=== PATIENT | female | born 1940 | race Caucasian/White ===

== ENCOUNTER 2016-07-24 11:56 | Inpatient (IN) | payer MEDICARE, OTHER ==
[~2016-07-24] VITALS: Ht 168 cm; Wt 68.5 kg
--- NOTE | 2016-07-30 10:44 | NUR ---
0745 AFTER RECEIVING REPORT FROM NIGHTSHIFT RN, I MADE PATIENT ROUNDS AT BEDSIDE AND WALKED [facility] 313 ROOM TO FIND PATIENT EATING MARTHA CRACKERS AND PATIENT REPORTING THAT SHE IS CHOKING ON THE CRACKER CRUMBS. PATIENT O2 SATURATION WAS 86% ON 3 LITERS NC AT THIS TIME. TURNED PATIENT UP TO 4L NC AT THIS TIME AND O2 CAME UP TO 91-92%. PATIENT DYSPNEIC AT THIS TIME. CALLED RT TO BEDSIDE. B/P 146/77. RESPIRATIONS 22. TEMP. 97.1. CALLED MD TINOCO AND REPORTED THE ABOVE TO HIM AT 0748... HE GAVE NEW ORDER FOR CHEST XRAY AT THIS TIME STAT. AFTER RECEIVING CHEST XRAY RESULTS I NOTIFIED DR. TINOCO AT 0920. [address] TINOCO KIDNEY FUNCTION HAS WORSENED TODAY BUN 65, CREATNINE 2.65. K 5.4, BNP GREATER THAN 35,000, PATIENT HAS GAINED 5.8 POUNDS SINCE YESTERDAY ACCORDING TO HER ADMIT WEIGHT. 0938 DR TINOCO GAVE ORDER TO HOLD ALL MEDS AND DO NOT GIVE. ORDER RECEIVED THIS AM TO HOLD MODIFIED BARIUM SWALLOW TEST TODAY. 0810 INCREASED O2 TO 5 LITERS BECAUSE PATIENT WAS 88% ON 4 LITERS NC. RT AT BEDSIDE AND INCREASED O2 TO [address] TINOCO MADE AWARE. REPORTED TO DR. TINOCO DURING MORNING MEETING THIS AM AROUND 1020 THAT PATIENT WAS NOT KEEPING O2 ON AT THIS TIME AND O2 SATURATION WOULD DROP DOWN IN THE 80'S, I HAVE BEEN IN HER ROOM SEVERAL TIMES THIS AM AND PLACED O2 BACK ON PATIENT. PATIENT WILL BE MOVED TO ICU PER DR. TINOCO
--- NOTE | 2016-07-30 13:03 | NUR ---
1135 REPORT GIVEN TO GLADYS BRAY FOR PATIENT TO TRANSFER TO ICU. 1142 PATIENT TRANSFERRED TO ICU AT THIS TIME. PATIENT ON 5L NC. PATIENT AWAKE AND TALKING AT THIS TIME.
== END 2016-07-30 11:30 | disposition short-term general hospital (02) | DRG 291 ==
LOC: SWI 11:56
PROVIDERS: ADMIT Internal Medicine
DX: I13.0 Hypertensive heart and chronic kidney disease with heart failure and stage 1 through stage 4 chronic kidney disease, or unspecified chronic kidney disease (principal); I50.33 Acute on chronic diastolic (congestive) heart failure; I63.9 Cerebral infarction, unspecified; N39.0 Urinary tract infection, site not specified; I47.1 Supraventricular tachycardia; K50.90 Crohn's disease, unspecified, without complications; E11.22 Type 2 diabetes mellitus with diabetic chronic kidney disease; B96.89 Other specified bacterial agents as the cause of diseases classified elsewhere; Z16.12 Extended spectrum beta lactamase (ESBL) resistance; N18.3 Chronic kidney disease, stage 3 (moderate); I73.9 Peripheral vascular disease, unspecified; F03.90 Unspecified dementia, unspecified severity, without behavioral disturbance, psychotic disturbance, mood disturbance, and anxiety; I25.10 Atherosclerotic heart disease of native coronary artery without angina pectoris; Z95.1 Presence of aortocoronary bypass graft; E78.5 Hyperlipidemia, unspecified; K21.9 Gastro-esophageal reflux disease without esophagitis; D69.6 Thrombocytopenia, unspecified; Z87.891 Personal history of nicotine dependence; D53.9 Nutritional anemia, unspecified; I27.2 Other secondary pulmonary hypertension; Z79.82 Long term (current) use of aspirin; Z79.02 Long term (current) use of antithrombotics/antiplatelets; Z79.4 Long term (current) use of insulin; Z79.899 Other long term (current) drug therapy; Z88.5 Allergy status to narcotic agent; Z88.0 Allergy status to penicillin; Z88.2 Allergy status to sulfonamides; Z90.49 Acquired absence of other specified parts of digestive tract
CPT/HCPCS: 92610; 97162-GP; 97166; J1335; J1650

== ENCOUNTER 2016-07-30 11:41 | Inpatient (IN) | payer MEDICARE, OTHER ==
[~2016-07-30] VITALS: Ht 167.6 cm; Wt 65.3 kg
--- NOTE | 2016-07-30 14:09 | NUR ---
1130: REPORT RECEIVED FROM JOSSIE TSAI RN ON RIWI. 1140: PT TRANSPORTED TO ICU VIA STRETCHER. PT ALERT AND ORIENTED X2, VSS, AND NO DISTRESS NOTED AT THIS TIME.
--- NOTE | 2016-07-31 05:28 | NUR ---
0515 SLEPT MOST OF NIGHT AFTER TAKING SEROQUEL. AWAKENED FOR LAB AND PT IRRITABLE AND UNCOOPERATIVE. WORDS MUMBLED AND HARD TO UNDERSTAND. LOOKING AROUND ROOM CONFUSED AT THIS TIME. LIGHT LEFT ON SO PT CAN SEE BETTER ITEMS IN ROOM. 0525 CXR TAKEN PORTABLE WITHOUT PROBLEMS. STILL TALKING WITH MUMBLED SPEECH AND APPEARS TO BE SEEING THINGS ON CEILING. UNABLE TO ANSWER QUESTIONS AT THIS TIME.
--- NOTE | 2016-07-31 21:31 | NUR ---
2124 SEROQUEL 25MG PO GIVEN TO PT IN PUDDING FOR REST AND PT SPIT IT ONTO FLOOR. THREW IN GARBAGE AND NEW MEDICATION GIVEN TO PT. SHE IS HAVE EPISODES LIKE LAST PM. SHE IS CONSTANTLY TALKING AND MUMBLING, REACHING TOWARD DEXTER AND YELLING AT TIMES. 02 SATS DECREASES WITH TALKING AND ACTING OUT. WILL MONITOR FOR COMFORT AND WILL NOTIFY MD IF SHE DOES NOT RELAX SOON.
--- NOTE | 2016-08-01 01:05 | NUR ---
0015 PT CONT TO MOAN AND GROAN LOUDLY IF IN PAIN. DR ALCARAZ NOTIFIED TORADOL IV ORDERED 0025 NOTED PTS HX OF CKD AND ALLERGY TO INSAIDS PER PHARMACY, CALLED AND ORDER CHANGED TO ULTRAM 25MG PO QID FOR PAIN. ULTRAM GIVEN ORDERED. 0100 CONT TO MOAN AND TALK AT INTERVALS LOUDLY IF IN PAIN. REPOSITIONED TO SIDE AND NO CHANGE IN REACTION AT THIS TIME.
--- NOTE | 2016-08-01 10:25 | NUR ---
0950- HERE TO SEE AND ASSESS PT AT THIS TIME. UPDATED ON PT CONDITION AN ABNORMAL LABS THIS AM. PT HAS BEEN FOR CT HEAD WELL MBS. N/O'S NOTED
--- NOTE | 2016-08-01 19:44 | NUR ---
1700-DR. HILTON HERE TO PLACE CENTRAL LINE FOR BLOOD TRANSFUSION. AWAITING BLOOD. POSITIVE FOR ANTIBODIES. TRIPLE LUMEN CENTRAL LINE PLACED IN RIGHT SC. PT TOLERATED WELL
--- NOTE | 2016-08-01 22:27 | NUR ---
2154 PT REMAINS CONFUSED AND YELLING OUT FREQ. HAS FEAR OF FALLING MOST OF THE TIME. DR. TINOCO CALLED TO CHECK ON PT AND SEROQUEL PO INCREASED TO 100MG AND 50MG PO GIVEN TO EQUAL 100MG FOR THIS P.M. DOSE.
--- NOTE | 2016-08-02 18:03 | NUR ---
1430-NOTIFIED MD OF CONTINUING AGITATION AND RESTLESSNESS. YELLS OUT FREQUENTLY. N/O'S NOTED AND HALDOL 2MG IM GIVEN AT THIS TIME
--- NOTE | 2016-08-02 23:11 | NUR ---
EXTRA DOSE OF HALDOL ORDERED AT [address] DIMAS DUE TO PATIENT'S AGITATED STATE. APPROX. 1 HR AFTER, PATIENT STILL YELLING, AGITATED, FAILING HER ARMS AND TENSING HER ENTIRE BODY. DR. DIMAS CAME TO THE ICU TO LOOK AT THE PATIENT AND DETERMINE WHAT THE NEXT STEP SHOULD BE. HE ORDERED GEODON 10 MG IM EVERY 4 HOURS. THIS WAS ADMINISTERED AROUND 2199. FINALLY, AROUND 2239, PATIENT RELAXED AND FELL ASLEEP. STILL MILDLY RESTLESS, BUT IS SLEEPING AND QUIET AT THIS TIME
--- NOTE | 2016-08-03 11:41 | NUR ---
0915- HERE SEE AND ASSESS PT THIS AM. UPDATED ON PT CONDITION AND AGITATION REPORTED LAST HS. NURSE REPORTED IMPROVED UOP LAST HS. PT CONTINUES WITH CONFUSION BUT NOT AGITATED THIS AM. NOTIFIED OF ABNORMAL LAB VALUES. N/O'S NOTED
--- NOTE | 2016-08-03 18:03 | NUR ---
1530-GEODON 10MG IM GIVEN AT THIS TIME FOR INCREASED AGITATION
--- NOTE | 2016-08-03 23:42 | NUR ---
PT HAS BECOME VERY AGITATED AND FEARFUL, YELLING AND TENSING UP, HAVING VISUAL AND AUDITORY HALLUCINATIONS. ATTEMPTS AT REDIRECTION WERE UNSUCCESSFUL AND PATIENT WAS GETTING WORSE. ROLANDO DOWD (PRN) GIVEN AROUND 0. AFTER SITTING AT BEDSIDE AND HOLDING HER HAND AND PLAYING SOME SOOTHING MUSIC, AT AROUND 2250, PATIENT HAD FALLEN ASLEEP AND APPEARS RELAXED AND COMFORTABLE.
--- NOTE | 2016-08-04 11:17 | NUR ---
0955- OXYGEN SATURATION READING LOW 80'S. PHYSICAL THERAPY AT BEDSIDE WORKING WITH PATIENT. DIVA FROM PHYSICAL THERAPY STATED THAT THE PATIENT HAD THE OXYGEN OFF WHEN THEY FIRST CAME IN THE ROOM. PATIENT ASSESSMENT UNCHANGED. NO COLOR CHANGE NOTED. PATIENT DID NOT CHANGE THEIR WORK OF BREATHING. RESPIRATIONS 22 BREATHS PER MINUTE. LUNG SOUNDS DIMINISHED AND CLEAR. DR TINOCO IN UNIT. PATIENT HFNC INCREASED TO 10L. NO CHANGE IN SPO2 READING. RESPIRATORY CALLED FOR ASSISTANCE. 1010- RT CHANGED PATIENT OVER TO VENTURI MASK AT 55%. ABG AND CXR ORDERED. PATIENT OXYGEN SATURATION SLOWLY INCREASING.
== END 2016-08-04 14:00 | disposition short-term general hospital (02) | DRG 291 ==
LOC: ICU 11:41
PROVIDERS: ADMIT Internal Medicine
PROC: 30233N1 Transfusion of Nonautologous Red Blood Cells into Peripheral Vein, Percutaneous Approach (ICD-10-PCS; principal; 2016-08-01)
PROC: 30233N1 Transfusion of Nonautologous Red Blood Cells into Peripheral Vein, Percutaneous Approach (ICD-10-PCS; 2016-08-02)
DX: I13.0 Hypertensive heart and chronic kidney disease with heart failure and stage 1 through stage 4 chronic kidney disease, or unspecified chronic kidney disease (principal); J96.22 Acute and chronic respiratory failure with hypercapnia; I50.33 Acute on chronic diastolic (congestive) heart failure; I63.9 Cerebral infarction, unspecified; G93.40 Encephalopathy, unspecified; N17.0 Acute kidney failure with tubular necrosis; J96.21 Acute and chronic respiratory failure with hypoxia; B37.49 Other urogenital candidiasis; E46 Unspecified protein-calorie malnutrition; E87.0 Hyperosmolality and hypernatremia; N18.9 Chronic kidney disease, unspecified; E11.22 Type 2 diabetes mellitus with diabetic chronic kidney disease; R47.02 Dysphasia; I73.9 Peripheral vascular disease, unspecified; J44.9 Chronic obstructive pulmonary disease, unspecified; Z68.21 Body mass index [BMI] 21.0-21.9, adult; L89.152 Pressure ulcer of sacral region, stage 2; D64.9 Anemia, unspecified; R13.10 Dysphagia, unspecified; F41.9 Anxiety disorder, unspecified; F32.9 Major depressive disorder, single episode, unspecified; I25.10 Atherosclerotic heart disease of native coronary artery without angina pectoris; D72.819 Decreased white blood cell count, unspecified; Z95.5 Presence of coronary angioplasty implant and graft; E78.5 Hyperlipidemia, unspecified; Z79.82 Long term (current) use of aspirin; Z79.4 Long term (current) use of insulin; Z79.899 Other long term (current) drug therapy
CPT/HCPCS: 92611; 93306; 97162-GP; 97166; J1630; J1644; J1940; J2060; P9021